=== PATIENT | female | born 1965 | race African-American/Black ===

== ENCOUNTER → 2020-08-02 | Outpatient (CLI) | payer MEDICARE ==
[~2020-08-02] MED LIST: OMNIPAQUE 350 MG/ML, 75ML BOTTLE ONE
== END | disposition home or self-care (01) ==
LOC: CFH 14:39
PROVIDERS: ATTEND Ophthalmology
DX: D86.89 Sarcoidosis of other sites (principal)
CPT/HCPCS: 70481; 82565; Q9967